=== PATIENT | male | born 1985 | race Caucasian/White ===

== ENCOUNTER → 2018-02-01 15:33 | Outpatient (CLI) | payer OTHER, SELFPAY ==
--- NOTE | 2018-02-01 15:23 | RAD_ITS ---
STUDY: X-RAY - RIGHT HAND REASON FOR EXAM: Male, 32 years old. Hand pain. TECHNIQUE: 3 view(s) of the hand. COMPARISON: None. FINDINGS: Normal radiocarpal articulation. Normal distal radioulnar joint. Normal visualized carpal bones. Normal carpal articulations Normal carpometacarpal articulation of the thumb. Normal second through fifth carpometacarpal joints. Normal metacarpi. Normal metacarpophalangeal joint of the thumb. Normal interphalangeal joint of the thumb. Normal proximal and distal phalanges of the thumb. Normal metacarpophalangeal joints of the second through fifth fingers. Normal proximal and distal interphalangeal joints of the second through fifth fingers. Normal phalanges of the second through fifth fingers. The soft tissue structures are unremarkable. RAD/Hand Min 3 Views IMPRESSION: Normal x-ray examination of the hand. Electronically Signed: Gregg Perez MD at 9:38 EDT , Service support ,
--- NOTE | 2018-02-01 15:23 | RAD_ITS ---
STUDY: X-RAY - LEFT HAND REASON FOR EXAM: Male, 32 years old. Hand pain TECHNIQUE: 3 view(s) of the hand. COMPARISON: None. FINDINGS: There is no evidence of fracture or dislocation. There are no significant degenerative changes. There are no radiodense foreign bodies. RAD/Hand Min 3 Views IMPRESSION: No fracture or dislocation. Electronically Signed: Jose Atkinson, at 16:00 EDT Tel , Service support ,
== END ==
PROVIDERS: Family Provider Internal Medicine; PCP Internal Medicine; Visit Provider Internal Medicine
DX: M25.50 Pain in unspecified joint (principal)
CPT/HCPCS: 73130

== ENCOUNTER 2023-04-03 19:58 | Emergency (ER) | payer OTHER, SELFPAY ==
[2023-04-03 20:00] VITALS: BP 138/97; PULSE 79; RESP 18; TEMP 36.7; O2SAT 100; BMI 27.2
--- NOTE | 2023-04-03 20:32 | EX.ED.DYSGE1 ---
HPI History of Present Illness Chief Complaint: Cellulitis Informant: patient Onset/Context/Timing Onset: Days Context: Gradual Onset Narrative Narrative: Patient presents with increasing redness to his left upper arm. He states on the evening of March 28 he was doing yard work after he got home. At the time he finished it was dark. He knows there were some spider webs around him but he does not remember specific injury or bite. When he got up the next morning he noted a small black line on the inner surface of his left upper arm. He thought he may have gotten marker on himself. Over the next day or 2 redness surrounded the area. He was seen at a [facility] on the and placed on doxycycline. He was seen by his PCP yesterday and given steroid injection along with a prescription for Ativan and prednisone. Patient states after working today he noticed the redness has increased in size and he noted some intermittent paresthesias in his left hand and forearm. He has not had a fever. He otherwise does not feel ill. He also notes that he has a red spot noted on the lateral portion of his left chest wall from transfer from his left arm. [facility] Medical History Anxiety IBS (irritable bowel syndrome) Allergy/AdvReac Type Severity Reaction Status Date / Time No Known Allergies Allergy Verified 04/03/23 20:00 Social History Smoking Status: Never smoker ROS ROS ED Constitutional Constitutional ED: Denies chills or fever(s) Eyes Eyes: Denies change in vision ENT ENT ED: Denies rhinorrhea or sore throat Cardiovascular Cardiovascular: Denies chest pain or palpitations Respiratory/Chest Respiratory/Chest: Denies cough or dyspnea Gastrointestinal Gastrointestinal: Denies abdominal pain, nausea or vomiting Genitourinary Genitourinary ED: Denies dysuria Musculoskeletal Musculoskeletal: Denies back pain or extremity pain Integumentary Reports rash; Denies Abrasions Neurologic Neurologic: Reports paresthesias; Denies headache(s) or weakness Psychiatric Psychiatric: Denies anxiety or depression Allergic/Immunologic Allergic/Immunologic ED: Denies lip swelling or urticaria EXAM Physical Exam Const Vital Signs: 04/03/23 20:00 Temperature 98.1 F Temperature Source Temporal Pulse Rate 79 Respiratory Rate 18 Blood Pressure 138/97 H Blood Pressure Mean 110 Pulse Ox 100 Positive well nourished and well developed General Appearance ED: well developed HEENT Reports normocephalic and head/scalp atraumatic Eyes PERRL and EOMs intact bilaterally Neck supple Chest Wall inspection of chest normal and palpation of chest normal Resp normal respiratory effort and clear to auscultation bilaterally Cardio regular rate and regular rhythm GI normal to inspection, nondistended, normoactive bowel sounds Palpation: soft Extremity Extremity Narrative: Approximate 4 x 9 cm triangle shaped scab noted to the inner surface of the left upper arm. This is surrounded by erythema and mild edema. There is minimal warmth to the area. Strong distal pulses are noted with full range of motion. Good sensation is noted at this time. There is no palpable fluctuance. Neuro oriented x3 and no sensory deficits noted Sensorium / Orientation: alert Motor Exam: strength 5/5 throughout Psych mental status grossly normal MDM MDM MDM Narrative Medical decision making narrative: Labwork obtained to evaluate for leukocytosis, anemia, and electrolyte derangement. Blood cultures obtained. Lab Data Attestation: I reviewed the patient's lab results. Labs: Laboratory Results - last 24 hr 04/03/23 20:35 WBC 10.2 RBC 4.94 Hgb 14.3 Hct 41.6 MCV 84.2 MCH 28.9 MCHC 34.4 RDW Std Deviation 36.3 RDW Coeff of Jef 12.1 Plt Count 219 MPV 10.2 Immature Gran % (Auto) 0.400 Neut % (Auto) 66.7 Lymph % (Auto) 22.2 Stevens % (Auto) 8.3 Eos % (Auto) 2.0 Baso % (Auto) 0.4 Absolute Neuts (auto) 6.8 Absolute Lymphs (auto) 2.27 Nucleated RBC % 0 ESR 2 Sodium 138 Potassium 3.9 Chloride 104 Carbon Dioxide 29.0 Anion Gap 5 BUN 22 H Creatinine 1.37 H Estim Creat Clear Calc 84.24 Est GFR (MDRD) Af Amer 75 Est GFR (MDRD) Non-Af 62 BUN/Creatinine Ratio 16.1 Glucose 140 H Calcium 9.3 C-React Prot Ext Range < 2.90 Treatment and Re-Evaluation :: CBC was normal white count and differential. Chemistry studies are significant for BUN of 22 and creatinine 1.37. I have no prior values available for comparison. Sed rate and CRP are both normal. Test results are discussed with the patient. A surgical marker is used to outline the area of erythema. My primary concern from his story is that he had transfer of the rash from the arm to the chest wall. This makes me think it may have been an oil-based reaction such as poison jimbo or poison sumac. He will continue the prednisone he was just prescribed as well as the doxycycline. He is given return instructions. Discharge Plan Triage Chief Complaint: Cellulitis ED Provider: Ariane Watt Dx/Rx/DC Orders Clinical Impression: Cellulitis Instructions: ED Cellulitis Primary Care Provider: Arleen Haskins Referrals: Arleen Haskins DO [Primary Care Provider] - 5-7 Days Disposition Disposition: Home, Self Care
[2023-04-03 20:49] LABS: Absolute Lymphocyte Count 2.27 X10^3/uL (0.83-4.51); Absolute Neutrophil Count 6.8 X10^3/uL (2.0-7.7); Basophil# 0.04 X10^3/uL; Basophil% 0.4 % (0-1); Hematocrit 41.6 % (40-54); Hemoglobin 14.3 g/dL (13.0-16.5); Lymphocyte # 2.27 X10^3/ul (0.83-4.51); Lymphocyte % 22.2 % (19-41); Mean Corp Hgb Conc 34.4 g/dL (32-36); Mean Corpuscular Hgb 28.9 pg (27.0-32.0); Mean Corpuscular Volume 84.2 fL (80-94); Mean Platelet Vol. 10.2 fl (6.2-12.0); Monocyte# 0.85 X10^3/uL; Monocyte% 8.3 % (0-10); NRBC Flagged by Analyzer 0 % (0-5); Neutrophil # 6.83 X10^3/uL (2.7-7.7); Neutrophil % 66.7 % (47-70); Platelet Count 219 K/mm3 (150-450); RBC Distribution Width CV 12.1 % (11.6-14.6); RBC Distribution Width SD 36.3 fl (35.1-43.9); Red Blood Count 4.94 M/mm3 (4.6-6.2); White Blood Count 10.2 K/mm3 (4.4-11.0)
[2023-04-03 21:04] LABS: Erythrocyte Sedimentation Rate 2 mm/hr (0-20); POSITIVE COUNT NO; POSITIVE DIFFERENTIAL NO; POSITIVE MORPHOLOGY NO
[2023-04-03 21:24] LABS: Anion Gap 5 (5-15); BUN 22 mg/dL (7-18); BUN/Creat Ratio 16.1 RATIO (10-20); CRP < 2.90 mg/L (0.0-3.0); Calcium,Total 9.3 mg/dL (8.5-10.1); Chloride 104 mmol/L (98-107); Creatinine, Serum 1.37 mg/dL (0.70-1.30); EST Glomerular Filtration Rate 62 mL/min (>60); Est Glom Filt Rate - Afr Amer 75 mL/min (>60); Estimated Creatinine Clearance 84.24 ml/min; Glucose 140 mg/dL (74-106); Potassium 3.9 mmol/L (3.5-5.1); Sodium Level 138 mmol/L (136-145)
== END 2023-04-03 21:59 | disposition home or self-care (01) ==
PROVIDERS: Emergency Provider Emergency Medicine; PCP Internal Medicine; Visit Provider Emergency Medicine
DX: L03.114 Cellulitis of left upper limb (principal)
CPT/HCPCS: 80048; 85025; 85652; 86140; 87040; 99283; A4216

== ENCOUNTER → 2024-05-28 | Outpatient (CLI) | payer SELFPAY ==
--- NOTE | 2024-05-28 19:08 | RAD_ITS ---
INDICATION: covid EXAMINATION/TECHNIQUE: X-RAY - XR Chest 2 Views COMPARISON: No previous relevant examinations available for comparison.. FINDINGS: LIFE-SUPPORT AND LINES: 1. None HEART AND VESSELS: The cardiac silhouette, pulmonary vasculature have normal appearance. No evidence of congestive failure. LUNGS AND PLEURAL SPACES: Lungs are clear. No focal infiltrate, consolidation or effusions. No evidence of pneumothorax. No pulmonary mass is noted. MEDIASTINUM AND HILAR REGIONS: No masses adenopathy noted. No areas of calcification. Visualized upper airway is normal in position. BONY ELEMENTS: No acute bony changes noted. RAD/Chest PA and Lateral IMPRESSION: 1. No evidence of acute cardiopulmonary process Electronically Signed: Brandon Espinoza MD at 22:51 EDT ,
== END | disposition home or self-care (01) ==
PROVIDERS: PCP Internal Medicine; Visit Provider Internal Medicine
DX: U07.1 COVID-19 (principal)
CPT/HCPCS: 71046

== ENCOUNTER → 2024-05-30 | Outpatient (CLI) | payer SELFPAY ==
[2024-05-30 16:05] LABS: D-Dimer Quantitative (DVT/PE) < 0.27 FEU/ug/m (0.27-0.49)
== END | disposition home or self-care (01) ==
LOC: LABSPEC 15:18
PROVIDERS: PCP Internal Medicine; Referring Provider Internal Medicine; Visit Provider Internal Medicine
DX: R07.89 Other chest pain (principal)
CPT/HCPCS: 85379

== ENCOUNTER → 2024-07-03 | Outpatient (CLI) | payer OTHER, SELFPAY ==
--- NOTE | 2024-07-03 13:16 | CT_ITS ---
HISTORY: Atypical chest pain. Covid 1.5 months ago. TECHNIQUE: CT angiogram of the chest was performed after the intravenous administration of 100 mL Isovue-370. Post-processing of the angiographic images was performed with multiplanar reformation and 3D reconstruction. Individualized dose optimization techniques were used for this CT. 1206 images. COMPARISON: XR 05/28/2024. FINDINGS: CENTRAL AIRWAYS: Patent. LUNGS: Clear. PLEURA: No pneumothorax or significant pleural effusion. HEART/PERICARDIUM: Heart within normal limits in size. No pericardial effusion. PULMONARY ARTERIES: No filling defect. AORTA/VESSELS: No thoracic aortic aneurysm or dissection flap. MEDIASTINUM/KOFFI: No pathologically enlarged lymph nodes. Residual thymus incidentally noted. OSSEOUS STRUCTURES: Intact. UPPER ABDOMEN: Unremarkable. CT/CTA Chest W/WO Contrast IMPRESSION: No evidence of pulmonary embolism or other acute abnormality in the chest. Electronically Signed: Tatianna Nayak MD at 14:40 EDT ,
== END | disposition home or self-care (01) ==
LOC: CT 12:54
PROVIDERS: PCP Internal Medicine; Referring Provider Internal Medicine; Visit Provider Internal Medicine
DX: R07.89 Other chest pain (principal)
CPT/HCPCS: 71275; Q9967

== ENCOUNTER → 2024-11-19 | Outpatient (CLI) | payer OTHER, SELFPAY ==
[2024-11-19 10:32] LABS: Erythrocyte Sedimentation Rate 1 mm/hr (0-20)
[2024-11-19 11:43] LABS: CRP < 3.00 mg/L (0.0-3.0); Rheumatoid Factor < 10.0 IU/mL (<15)
[2024-11-20 09:08] LABS: ANTINUCLEAR ANTIBODIES DIRECT Negative (Negative)
== END | disposition home or self-care (01) ==
LOC: LAB 09:32
PROVIDERS: PCP Internal Medicine; Referring Provider Internal Medicine Pulmonary Disease; Visit Provider Internal Medicine Pulmonary Disease
DX: M94.0 Chondrocostal junction syndrome [Tietze] (principal)
CPT/HCPCS: 36415; 85652; 86038; 86140; 86431